=== PATIENT | male | born 1980 | race Hispanic/Latino ===

== ENCOUNTER 2018-12-11 18:27 | Emergency (ER) | payer OTHER ==
[~2018-12-11] VITALS: Ht 170.2 cm; Wt 90.7 kg
[2018-12-11] MEDS ORDERED: HYDROMORPHONE 2MG/ML 2 MG/ML ML IV ONE (20:00)
[2018-12-11] MEDS ORDERED: ONDANSETRON HCL INJ 2MG/ML 2ML 2 MG/ML VIAL IV ONE (20:00)
--- NOTE | 2018-12-11 20:43 | Diagnostic Imaging Report ---
SHOULDER LEFT COMPLETE - 2 views AP and scapular Y HISTORY: Pain. Anterior dislocation. COMPARISON: None available. FINDINGS: Bones: No acute displaced fracture. Osseous alignment is within normal limits. Joints: Left humerus is anteriorly dislocated. No osseous injury. Soft tissues: The soft tissues appear unremarkable. IMPRESSION: Anterior dislocation of the left shoulder. No definite osseous injury. Signed by: Dr. Ibrahima Coronado M.D. on 12/11/2018 8:39 PM
[2018-12-11 21:15] VITALS: BP 126/90
--- NOTE | 2018-12-11 21:19 | Diagnostic Imaging Report ---
SHOULDER LEFT COMPLETE - 3 views HISTORY: Pain. Dislocation COMPARISON: Left shoulder x-ray of the same day. FINDINGS: Bones: No acute displaced fracture. Osseous alignment is within normal limits. Joints: Interval relocation of the left shoulder. 5 mm radiodensity at the inferior glenoid, possibly a Bankart's lesion versus a ligamentous injury/avulsion. Soft tissues: The soft tissues appear unremarkable. IMPRESSION: 1. Interval relocation of the left shoulder. 2. 5 mm radiodensity at the inferior glenoid, possibly a Bankart's lesion versus a ligamentous injury/avulsion. Signed by: Dr. Ibrahima Coronado M.D. on 12/11/2018 9:15 PM
== END 2018-12-11 21:23 | disposition home or self-care (01) ==
LOC: ER 18:27
DX: S43.015A Anterior dislocation of left humerus, initial encounter (principal); X50.1XXA Overexertion from prolonged static or awkward postures, initial encounter; Y99.0 Civilian activity done for income or pay
CPT/HCPCS: 23650; 73030; 96374; 96375; 99284; J1170; J2405